=== PATIENT | male | born 1975 | race Caucasian/White ===

== ENCOUNTER 2018-11-20 06:48 | Emergency (ER) | payer MEDICAID ==
[~2018-11-20] VITALS: Ht 180.3 cm; Wt 81.6 kg
[2018-11-20 06:54] VITALS: Ht 180.3 cm; Wt 81.6 kg
[2018-11-20 07:19] VITALS: BP 124/84
== END 2018-11-20 07:19 | disposition home or self-care (01) ==
LOC: ED 06:48
DX: H16.002 Unspecified corneal ulcer, left eye (principal)